=== PATIENT | male | born 1985 ===

== ENCOUNTER 2025-02-15 22:19 | Emergency (ER) | payer SELFPAY ==
--- NOTE | ~2025-02-15 | XR_ITS ---
CLINICAL HISTORY: L rib pain 1 view chest x-ray Comparison: None provided Findings: No consolidation or effusion. Normal size heart. No acute fracture. IMPRESSION: 1. No acute findings. This document has been electronically signed by: Reji Kumar MD on 02/16/2025 00:19:17
[2025-02-15 22:26] VITALS: BP 178/111; BP 194/134; PULSE 81; RESP 26; TEMP 36.8; O2SAT 98; BMI 36.5
--- NOTE | 2025-02-15 22:31 | ECG_ITS ---
Test Reason : CHEST PAIN Blood Pressure : */* mmHG Vent. Rate : 72 BPM Atrial Rate : 72 BPM P-R Int : 132 ms QRS Dur : 92 ms QT Int : 388 ms P-R-T Axes : 45 39 58 degrees QTcB Int : 424 ms Normal sinus rhythm Normal ECG No previous ECGs available Referred By: Generic ED Physician Electronically Signed By: THUY GARCIA
[2025-02-15 22:39] LABS: MANUAL DIFF FLAG NO
[2025-02-15 22:41] LABS: Hematocrit 46.8 % (42.0-52.0); Hemoglobin 17.1 g/dl (14.0-18.0); Imm Gran Abs Auto 0.08 X10*3/uL (0.00-0.03); Imm Gran Pct Auto 0.6 % (0.0-0.4); Lymphocytes Absolute Auto 2.2 X10*3/uL (1.2-4.9); Mean Corpuscular HGB Conc 36.5 g/dl (31.0-36.0); Mean Corpuscular Hemoglobin 31.5 pg (27.0-33.0); Mean Corpuscular Volume 86.3 fL (80.0-98.0); NRBC Abs Auto 0.000 X10*3/uL (0.0-0.012); NRBC Pct Auto 0.0 /100WBC (0.0-0.2); Platelet Count 245 X10*3/uL (160-400); Red Blood Count 5.42 X10*6/uL (4.60-5.80); White Blood Count 12.7 X10*3/uL (4.8-10.8)
--- NOTE | 2025-02-15 22:56 | MHC.EDTECH ---
EKG DONE PRIOR TO MY ARRIVAL , MARKED COMPLETE TO COMPLETE THE TASK
[2025-02-15 23:00] LABS: Chloride 107 mmol/L (96-108); Potassium 4.0 mmol/L (3.3-5.1); Sodium 142 mmol/L (135-145)
[2025-02-15 23:01] LABS: Alanine Aminotransferase 50 U/L (0-40); Albumin Level 5.0 g/dL (3.5-5.0); Alkaline Phosphatase 87 U/L (39-117); Anion Gap 18 (12-20); Aspartate Amino Transferase 32 U/L (5-37); Blood Urea Nitrogen 14 mg/dL (9-16); Calcium 9.6 mg/dL (8.4-10.2); Carbon Dioxide 21 mmol/L (22-29); Creatinine Clr Calc Pharmacy 93.9; Estimated Glomerular Filt Rate > 60; Total Protein 7.7 g/dL (6.5-8.0)
[2025-02-15 23:04] LABS: Troponin-I High Sensitivity < 2.7 ng/L (<3.5-35.0)
--- NOTE | 2025-02-15 23:47 | ED.NAVMDI ---
HPI - Nausea/Vomiting/Diarrhea General Chief complaint: Nausea/Vomiting/Diarrhea Stated complaint: CP pain for 20 mins Time Seen by Provider: 02/15/25 23:40 Source: patient Mode of arrival: ambulatory Limitations: no limitations History of Present Illness ED Provider: Dr. Tracy Bains HPI Narrative: Patient comes to the emergency room complaining of nausea vomiting and sharp pain on a specific area over a rib on the left side. Patient's and out to eat dinner, are filet jenie. And shortly after started having multiple episodes of vomiting, abdominal pain, left-sided rib pain and no diarrhea. Denies fever chills Related Data Previous Rx's ?Medication ?Instructions ?Recorded hyoscyamine sulfate 0.125 mg tablet 0.125 mg PO QID PRN dyspepsia #10 02/16/25 tabs ondansetron HCl 4 mg tablet 4 mg PO Q6H PRN nausea and 02/16/25 vomiting #14 tabs Allergies Allergy/AdvReac Type Severity Reaction Status Date / Time metoclopramide (Reglan) Allergy Unknown Unknown Verified 02/15/25 22:29 demerol Allergy Unknown stopped Uncoded 02/15/25 22:29 breathing From Demerol Allergy Unknown ANAPHYLAXIS Uncoded 02/15/25 22:29 Review of Systems Review of Systems: Constitutional : No Weight loss, No Fever, No Chills, No Night Sweats, No Fatigue, No Malaise ENT/Mouth : No Hearing loss, No Ear Pain, No Nasal Congestion, No Sinus Pain, No Hoarseness, No sore throat, No Rhinorrhea, No Swallowing Difficulty Eyes: No Eye Pain, No Swelling, No Redness, No Foreign Body, No Discharge, No Vision Changes Cardiovascular : No Chest Pain, No SOB, No Dyspnea on Exertion, No Orthopnea, No Edema, No Palpitations Respiratory : No Cough, No Sputum, No Wheezing, No Smoke Exposure, No Dyspnea Gastrointestinal : Complaining of nausea and vomit, No Diarrhea, No Constipation, No abdominal Pain, No Hematochezia, No Melena Genitourinary : no irregular bleeding, No Dysuria, No Urinary Frequency, No Hematuria, No Urinary Incontinence, No Urgency, No Flank Pain, No Urinary Flow Changes, No Hesitancy Musculoskeletal : Complaining of left-sided rib pain, No joint pain, No Myalgias, No Joint Swelling Skin : No Skin Lesions, No rash Neuro : No Weakness, No Numbness, No Paresthesias, No Loss of Consciousness, No Dizziness, No Headache Psych : No Anxiety/Panic, No Depression, No SI/HI/AH/VH, No Social Issues, Heme/Lymph: No Bruising, No Bleeding,No Lymphadenopathy Endocrine : No Polyuria, No Polydipsia, No Temperature Intolerance [facility] Past Medical History Medical History (Updated 02/16/25 @ 03:34 by Tracy Bains MD) Anxiety Sleep apnea Social History Social History Smoked in Last 30 Days: No Use of substances other than those prescribed or required for medical reasons: No Physical Exam Exam: Exam: Appearance: Alert. Oriented X3. Looks uncomfortable, actively vomiting. Eyes: Pupils equal, round and reactive to light. ENT: Pharynx normal. Neck: Normal inspection. Neck supple. No lymph nodes noted. No crepitus CVS: Normal heart rate and rhythm. Pulses normal. Normal S1 and S2 Respiratory: No respiratory distress. Breath sounds normal. No Wheezing. No rales Abdomen: Soft and nont slightly diaphoretic, nd dry. Normal skin color. Normal skin turgor. Extremities: No lower extremity edema. No Lacerations. No Rash Neuro: Oriented X 3. No motor deficit. No sensory deficit. Moving all extremities. No slurred speech. CN 2 through 12 grossly intact Psych: calm, cooperative, bit anxious Vital Signs: Vital Signs: Last Vital Signs Temp 98.2 F 02/15/25 22:26 Pulse 81 02/15/25 22:26 Resp 26 H 02/15/25 22:26 BP 178/111 H 02/15/25 22:26 Pulse Ox 98 02/15/25 22:26 O2 Del Method Room Air 02/15/25 22:26 BMI result Body Mass Index 36.5 Course Course Course Narrative: Patient receiving IV fluids, Zofran and ketorolac All of patient's labs and imaging pending Medications Administered Discontinued Medications Generic Name Dose Route Start Last Admin Trade Name Freq PRN Reason Stop Dose Admin Ketorolac Tromethamine 30 mg 02/15/25 23:44 02/15/25 23:58 Ketorolac Tromethamine 30 Mg/Ml Vial IVPUSH 02/15/25 23:45 30 mg ONCE ONE Administration Ondansetron HCl 4 mg 02/15/25 22:45 02/15/25 22:48 Ondansetron Hcl 4 Mg/2 Ml Vial IVPUSH 02/15/25 22:46 4 mg ONCE ONE Administration Prochlorperazine Edisylate 10 mg 02/15/25 23:44 02/15/25 23:58 Prochlorperazine Edisylate 10 Mg/2 Ml Vial IVPUSH 02/15/25 23:45 10 mg ONCE ONE Administration Medical Decision Making Medical Decision Making [facility] Narrative: My interpretation of EKG: Normal sinus rhythm, heart rate 72, no ST segment depression or elevation, no T-wave inversion, QTC 424 My interpretation of labs: Patient's white blood cell count 12.7, likely reactive leukocytosis, D-dimer negative, normal electrolytes, LFTs fairly normal, ALT slightly bumped, nonspecific. Troponin 1 and 2 are negative Patient does not have any symptoms at this time, patient feeling better, no longer vomiting. Patient likely had gastritis versus gastroenteritis, versus peptic ulcer disease Unlikely that patient had a cardiac event or pulmonary bed. Chest x-ray was negative for any acute pathology Patient's vitals stable and feels well to go home Differential Diagnosis Differential Diagnoses: The differential diagnosis associated with the presentation includes (As above) Admission/Observation Consideration of admission/observation: Escalation of care including admission/observation considered (Given patient's age and symptoms, observation was considered) Lab Data [facility] Lab Attestation statement: I reviewed the patient's lab results. 02/15/25 22:35 02/15/25 22:35 Labs: Lab Results 02/15/25 02/16/25 Range/Units 22:35 00:23 WBC 12.7 H (4.8-10.8) X10*3/uL RBC 5.42 (4.60-5.80) X10*6/uL Hgb 17.1 (14.0-18.0) g/dl Hct 46.8 (42.0-52.0) % MCV 86.3 (80.0-98.0) fL MCH 31.5 (27.0-33.0) pg MCHC 36.5 H (31.0-36.0) g/dl RDW 12.4 (11.0-16.0) % Plt Count 245 (160-400) X10*3/uL MPV 10.4 (9.4-12.4) fL Immature Gran % (Auto) 0.6 H (0.0-0.4) % Neut % (Auto) 76.2 H (45-73) % Lymph % (Auto) 17.6 L (20-40) % [place] % (Auto) 4.2 (2-11) % Eos % (Auto) 0.8 (0-4) % Baso % (Auto) 0.6 (0-2) % Lymph # (Auto) 2.2 (1.2-4.9) X10*3/uL [place] # (Auto) 0.5 (0.1-1.2) X10*3/uL Eos # (Auto) 0.1 (0.0-0.4) X10*3/uL Baso # (Auto) 0.1 (0.0-0.2) X10*3/uL Abs Immat Gran (auto) 0.08 H (0.00-0.03) X10*3/uL Absolute Neuts (auto) 9.7 H (2.0-8.3) x10*3/uL Absolute Nucleated RBC 0.000 (0.0-0.012) X10*3/uL Nucleated RBC % (auto) 0.0 (0.0-0.2) /100WBC D-Dimer High Sensitivty < 150 NG/ML Sodium 142 (135-145) mmol/L Potassium 4.0 (3.3-5.1) mmol/L Chloride 107 (96-108) mmol/L Carbon Dioxide 21 L (22-29) mmol/L Anion Gap 18 (12-20) BUN 14 (9-16) mg/dL Creatinine 1.25 (0.5-1.4) mg/dL Estim Creat Clear Calc 93.9 Estimated GFR > 60 Random Glucose 89 (60-115) mg/dL Calcium 9.6 (8.4-10.2) mg/dL Total Bilirubin 0.4 (0.0-1.0) mg/dL AST 32 (5-37) U/L ALT 50 H (0-40) U/L Alkaline Phosphatase 87 (39-117) U/L Troponin I High Sens < 2.7 3.2 (<3.5-35.0) ng/L Total Protein 7.7 (6.5-8.0) g/dL Albumin 5.0 (3.5-5.0) g/dL Independent Interpretation I performed an independent interpretation of an: EKG and Plain X-Ray Radiology Impression Discussion of test interpretation with radiology: I have reviewed the radiologist's reading. Radiologist Impression: No consolidation or effusion. Normal size heart. No acute fracture. IMPRESSION: 1. No acute findings. Critical Care Time Critical Care Time Critical Care Time: Yes Total Critical Care Time: 35 Attestation: I have personally provided critical care time. Time includes review of lab data, radiology results, discussion with consultants, and monitoring for potential decompensation. Intervention performed as documented. Discharge Plan Discharge Clinical Impression: Abdominal pain, Nausea & vomiting, Atypical chest pain Patient Disposition: Home, Self-Care Instructions: Acute Nausea and Vomiting (ED), Abdominal Pain (ED) Additional Instructions: Please follow-up with your primary care physician tomorrow. If you have any worsening or new symptoms, please return to the emergency room or call 911 Prescriptions: New hyoscyamine sulfate 0.125 mg tablet 0.125 mg PO QID PRN (Reason: dyspepsia) Qty: 10 0RF ondansetron HCl 4 mg tablet 4 mg PO Q6H PRN (Reason: nausea and vomiting) Qty: 14 0RF Print Language: [place]i
[2025-02-16 00:48] LABS: Troponin-I High Sensitivity 3.2 ng/L (<3.5-35.0)
[2025-02-16 00:50] LABS: D Dimer High Sensitivity < 150 NG/ML
[2025-02-16 03:48] VITALS: BP 162/116; PULSE 92; RESP 20; TEMP 36.8; O2SAT 97
--- OUTSIDE RECORDS SUMMARY | 2025-02-16 04:04 | XMS_ITS | Clinical Summary ---
Author Organization [facility] ity Address [address] [place] [address] Care Team Providers Care Netsuite Consultant Name Role Phone Unavailable Primary Care Provider Unavailabl e Social History Tobacco Use Types Packs/Day Years Used Date Smoking Tobacco: Never Assessed Sex and Gender Information Value Date Recorded Sex Assigned at Not on file Legal Sex Male 5:35 PM EST Gender Identity Not on file Sexual Orientation Not on file Plan of Treatment Health Maintenance Due Date Last Done Comments DTaP,Tdap,and Td Vaccines (1 - Tdap) 02/22/2003 Hepatitis B Vaccines (1 of 3 - 19+ 3-dose series) 02/22/2003 HPV Vaccines (1 - 3-dose SCD M series) 02/22/2011 Cholesterol Screening (Lipid Panel) 04/16/2022 HIV Screening 04/16/2022 Hepatitis C Screening 04/16/2022 Social Influencers of Health Screening 04/16/2022 Depression Screening 05/15/2024 COVID-19 Vaccine ( - 2023-2 5 season) 2025 Influenza Vaccine (#1) 2025 RSV Immunization Adult Patie nts (1 - 1-dose 75+ series) 02/22/2059 HIB Vaccines Aged Out No longer eligi ble based on patient's age to complete this topic Hepatitis A Vaccines Aged Out No long er eligible based on patient's age to complete this topic IPV Vaccines Aged Out No longer eligi ble based on patient's age to complete this topic MMR Vaccines Aged Out No longer eligi ble based on patient's age to complete this topic Meningococcal ACWY Vaccine Aged Out N o longer eligible based on patient's age to complete this topic Meningococcal B Vaccine Aged Out No l onger eligible based on patient's age to complete this topic Pneumococcal Vaccine: Pediat rics (0 to 5 Years) and At-Risk Patients (6 to 49 Years) Aged Out No longer eligible b ased on patient's age to complete this topic RSV Immunization Patients Un gerri 20 months Aged Out No longer eligible b ased on patient's age to complete this topic Varicella Vaccines Aged Out No longer eligible based on patient's age to complete this topic
== END 2025-02-16 04:02 | disposition home or self-care (01) ==
LOC: HO.ED 02-16 04:00
PROVIDERS: Emergency Provider Emergency Medicine
DX: R11.2 Nausea with vomiting, unspecified (principal); R07.89 Other chest pain; R10.9 Unspecified abdominal pain
CPT/HCPCS: 36415; 71045; 80053; 84484; 85025; 85379; 93005; 96374; 96375; 99284; J0737; J1885; J2405

== ENCOUNTER → 2025-02-15 22:31 | Outpatient (BNV) | payer OTHER, SELFPAY | PROVIDERS: Emergency Provider Emergency Medicine; Visit Provider Internal Medicine | DX: R07.89 Other chest pain (principal) | CPT/HCPCS: 93010 ==

== ENCOUNTER → 2025-02-15 23:44 | Outpatient (BNV) | payer OTHER, SELFPAY | PROVIDERS: Emergency Provider Emergency Medicine; Visit Provider Radiology Diagnostic Radiology | DX: R07.89 Other chest pain (principal) | CPT/HCPCS: 71045 ==